=== PATIENT | male | born 1950 | race American Indian/Alaskan Native ===

== ENCOUNTER 2022-04-14 06:03 | Day surgery (SDC) | payer MEDICARE ==
[~2022-04-14 06:03] MED LIST: MIDAZOLAM 2 MG/2 ML INJ IV NR; SODIUM CHLORIDE 0.9% 1000 ML 1,000 ML IV SCH; ceFAZolin/Water 2 GM/20 ML 2 GM/20 ML SYRINGE IV SCH
[2022-04-14 06:49] LABS: Hematocrit 24.4 % (35.5-45.6); Hemoglobin 7.8 gm/dl (11.8-15.2); Mean Corpuscular HGB Conc 32 % (32-34); Mean Corpuscular Volume 84 fl (84-94); Platelet Count 131 K/mm3 (140-440); Red Blood Count 2.89 M/mm3 (3.65-5.03); Red Cell Distribution Width 14.4 % (13.2-15.2)
[2022-04-14 07:01] LABS: Calcium 8.2 mg/dL (8.4-10.2)
[2022-04-14] MEDS ORDERED: SODIUM CHLORIDE 0.9% 500 ML 500 ML ONE (07:38)
[2022-04-14] MEDS ORDERED: HEPARIN 10,000 UNITS/10 ML VIAL ONE (07:38)
[2022-04-14] MEDS ORDERED: BUPIVACAINE/PF (0.5%) 5 MG/1 ML 30 ML VIAL INFILTRATI ONE (07:38)
[2022-04-14] MEDS ORDERED: LIDOCAINE MPF (2%) 20 MG/1 ML VIAL 5 ML ONE (07:39)
[2022-04-14] MEDS ORDERED: ONDANSETRON 4 MG/2 ML INJ ONE (07:39)
[2022-04-14] MEDS ORDERED: fentaNYL 100 MCG/2 ML INJ ONE (07:39)
[2022-04-14] MEDS ORDERED: propofoL 200 MG/20 ML VIAL IV ONE ×2 (07:39→09:00)
--- NOTE | 2022-04-14 07:41 | Anesthesia Consultation ---
Anesthesia Consult and Med Hx Date of service: 04/14/22 - Airway Anesthetic Teeth Evaluation: Edentulous ROM Head & Neck: Adequate Mental/Hyoid Distance: Adequate Mallampati Class: Class III Intubation Access Assessment: Possibly Difficult - Pre-Operative Health Status ASA Pre-Surgery Classification: ASA3 Proposed Anesthetic Plan: MAC Nerve Block: supraclavicular - Pulmonary Hx Smoking: Yes (former smoker quit 30yrs ago) Hx Respiratory Symptoms: No - Cardiovascular System Hx Hypertension: Yes (took atenolol this morning) Hx Heart Attack/AMI: No - Central Nervous System CVA: No - Endocrine Hx Renal Disease: Yes (CKD V; not yet on HD) Hx Liver Disease: No Hx Insulin Dependent Diabetes: Yes Hx Thyroid Disease: No - Hematic Hx Anemia: Yes - Other Systems Hx Cancer: Yes (prostate ca) - Additional Comments Anesthesia Medical History Comments: No hx anesthetic complications.
--- NOTE | 2022-04-14 07:42 | Anesthesia Day of Surgery ---
Anesthesia Day of Surgery - Day of Surgery Patient Examined: Yes Patient H&P Reviewed: Yes Patient is NPO: Yes Beta Blockers: Yes (atenolol today AM)
--- NOTE | 2022-04-14 07:43 | Short Stay Summary ---
Short Stay Documentation Date of service: 04/14/22 Narrative H&P: The patient is a 72-year-old male with a history of stage V chronic renal sufficiency who was not yet on hemodialysis however it is anticipated that he may require hemodialysis in the near future. He is in need of creation of permanent dialysis access to avoid the placement of a permacath if he does progress to requiring hemodialysis. He is right-hand dominant and will require an access creation in his left upper extremity. I performed a bedside u ltrasound that demonstrates he is an adequate candidate for creation of a left brachiocephalic arteriovenous fistula. He was given the risk, benefits, and alternative procedures and has consented to the procedure. - History Past Medical History: anemia, diabetes, hypertension, hyperlipidemia, renal failure, other (History of gastric ulcer, history of prostate cancer) Past Surgical History: TURP, Other (Repair of bleeding ulcer, tear duct surgery) - Allergies and Medications Current Medications: Allergies No Known Allergies Allergy (Verified 04/05/22 16:58) Home Medications Medication Instructions Recorded Confirmed Last Taken Type Amlodipine Besylate/Benazepril 1 each PO DAILY 04/05/22 04/05/22 04/13/22 History [Amlodipine-Benazepril 10-20 mg] Ascorbic Acid [Vitamin C] 500 mg PO DAILY 04/05/22 04/05/22 04/13/22 History Atenolol [Tenormin] 100 mg PO DAILY 04/05/22 04/14/22 04/14/22 04:30 History Bumetanide [Bumetanide 2 mg tab] 2 mg PO DAILY 04/05/22 04/05/22 04/13/22 History Cyanocobalamin (Vitamin B-12) 5,000 mcg PO DAILY 04/05/22 04/05/22 04/13/22 History [Vitamin B12] Ergocalciferol(Vitamin D2)(Nf) 400 unit PO DAILY 04/05/22 04/05/22 04/13/22 History [Vitamin D (Nf)] Insulin Degludec [Tresiba 15 unit SQ HS 04/05/22 04/05/22 04/13/22 History Flextouch U-100] Mv-Mn/Folic Acid/Lutein/Qgt011 1 each PO DAILY 04/05/22 04/05/22 04/13/22 History [Mens Multivit High Potency Tab] [place]-3 Fatty Acids/Fish Oil [Fish 1,000 mg PO DAILY 04/05/22 04/05/22 04/13/22 History Oil] Pravastatin Sodium [Pravastatin] 10 mg PO QHS 04/05/22 04/05/22 04/13/22 History Sodium Bicarbonate 650 mg PO BID 04/05/22 04/05/22 04/13/22 History Active Medications Fentanyl (Fentanyl 100 Mcg/2 Ml Inj) 100 mcg IV ONCE PRN PRN Reason: sedation for nerve block Stop: 04/14/22 23:59 Cefazolin Sodium (Ancef/Sterile Water 2 Gm/20 Ml) 2 gm in 20 mls @ 80 mls/hr IV PREOP ARTURO; Protocol Stop: 04/14/22 23:00 Sodium Chloride (Nacl 0.9% 1000 Ml) 1,000 mls @ 42 mls/hr IV DIRECT ARTURO Stop: 04/14/22 23:59 Midazolam HCl (Midazolam 2 Mg/2 Ml Inj) 2 mg IV PREOP NR Stop: 04/14/22 23:59 - Physical exam General appearance: no acute distress Lungs: Normal air movement Breasts: deferred Heart: Regular rate Gastrointestinal: normal Male Genitourinary: deferred Rectal Exam: deferred Extremities: pulses intact (Palpable radial pulses bilaterally) - Brief post op/procedure progress note Date of procedure: 04/14/22 Pre-op diagnosis: Stage V Chronic Renal Insufficiency Post-op diagnosis: same Procedure: Creation of Left Brachiocephalic Arteriovenous Fistula Anesthesia: MAC, regional Surgeon: JESE GUZMÁN Estimated blood loss: minimal Pathology: none Condition: stable - Disposition Condition at discharge: Good Disposition: 01 HOME / SELF CARE / HOMELESS Short Stay Discharge Plan Activity: other (No heavy lifting with left arm for 2 weeks. Use the stress ball with left hand as often as possible.) Wound: open to air, keep clean and dry, other (Okay to shower and wash the wound with soap and water but do not soak in water for 2 weeks) Follow up with: JESE GUZMÁN MD [Staff Physician] - 14 Days Prescriptions: HYDROcodone/APAP 5-325 [[place] 5/325] 1 each PO Q4HR PRN #30 tablet PRN Reason: Pain
[2022-04-14] MEDS ORDERED: LIDOCAINE (1%) 10 MG/1 ML VIAL 20 ML MDV ONE (07:44)
[2022-04-14] MEDS ORDERED: BUPIVACAINE/PF (0.25%) 2.5 MG/ML 30 ML VIAL INFILTRATI ONE (07:44)
[2022-04-14] MEDS: fentaNYL 100 MCG/2 ML INJ IV PRN ×2 (07:53→07:59)
[2022-04-14] MEDS ORDERED: SODIUM CHLORIDE 0.9% IRR 1,500 ML BOTTLE IR ONE (08:30)
[2022-04-14] MEDS ORDERED: HEPARIN 10,000 UNITS/10 ML VIAL IV ONE (08:30)
[2022-04-14] MEDS ORDERED: SODIUM CHLORIDE 0.9% 500 ML IVPB IV ONE (08:31)
[2022-04-14] MEDS ORDERED: KETAMINE/STERILE WATER 50 MG/ML SYRINGE ONE (08:34)
--- NOTE | 2022-04-14 09:36 | Operative Report ---
Operative Report Operative Report: Date of procedure: 04/14/2022 Pre-operative diagnosis: End-Stage Renal Disease Post-operative diagnosis: End-Stage Renal Disease Procedure(s): Creation of Left Brachial Artery to Cephalic Vein Arteriovenous Fistula Surgeon: Arash Fontanez MD Blocking Machine Operator Second: None Anesthesia: Regional/MAC EBL: Minimal Counts: Correct Complications: None Condition: Stable Findings: Successful creation of left brachiocephalic arteriovenous fistula with palpable thrill and palpable radial pulse at the completion of the case. Specimen: None Indications: The patient is a 72-year-old male with a history of stage V chronic renal sufficiency who was not yet on hemodialysis however it is anticipated that he will progress to end-stage renal disease with the need for hemodialysis in the near future. He is in need of permanent dialysis access to avoid the placement of a permacath and was found to be a suitable candidate for creation of a left brachiocephalic arteriovenous fistula. He was given the risk, benefits, and alternative procedures and consented to the procedure. Description of Procedure: The patient had a regional block of the patient's left arm was performed in the preoperative area prior to being transported to the operating room. Once the regional block was performed the patient was transported to the operating room and adequate sedation was given. When the patient was sedated a timeout was performed and the patient's left arm was then prepped and draped in normal sterile fashion. A transverse incision was then made and carried down to the cephalic vein using sharp dissection. The vein was dissected out both proximally and distally and suture ligated and divided distally. I flushed the vein with heparinized saline and flow was controlled with a bulldog clamp. I then dissected out the brachial artery through this incision circumferentially both proximal and distal and controlled the artery with vessel loops. I systemically heparinized the patient with 3000 units of heparin IV and used angled DeBakey clamps to control flow through the artery. I created an arteriotomy using an 11 blade and Cardona scissors. I created an end to side anastomosis between the cephalic vein and brachial artery using a 6-0 Prolene in running fashion. Prior to completing the anastomosis I flashed the artery both proximally and distally and then flushed the anastomosis with heparinized saline to remove any debris. I then completed the anastomosis and removed all clamps allowing flow into the fistula which had an adequate thrill. I achieved hemostasis with a combination of Quick Clot and electrocautery. Once hemostasis had been achieved I closed the wound in 2 layers using a 3-0 Vicryl in a running fashion in the deep dermal layer and a 4-0 Monocryl in running fashion in the subcuticular layer. I then dressed the wound with Dermabond. The patient tolerated the procedure well. All sponge, needle, and instrument counts were correct. The patient was taken to the recovery area in stable condition.
[2022-04-14] MEDS ORDERED: ONDANSETRON 4 MG/2 ML INJ IV PRN (10:45)
[2022-04-14 11:31] VITALS: BP 126/62
--- NOTE | 2022-04-14 13:50 | Post Anesthesia Evaluation ---
- Post Anesthesia Evaluation Patient Participated: Yes Airway Patent: Yes Stable Respiratory Function: Yes Nausea/Vomiting: No Temp > 96.8F: Yes Pain Manageable: Yes Adequeate Hydration: Yes Anesthesia Complications: No
== END 2022-04-14 11:08 | disposition home or self-care (01) ==
LOC: OR 06:03
PROVIDERS: ATTEND Surgery Vascular Surgery
DX: I12.0 Hypertensive chronic kidney disease with stage 5 chronic kidney disease or end stage renal disease (principal); E11.22 Type 2 diabetes mellitus with diabetic chronic kidney disease; N18.6 End stage renal disease; D64.9 Anemia, unspecified; Z79.899 Other long term (current) drug therapy; Z87.891 Personal history of nicotine dependence; Z85.46 Personal history of malignant neoplasm of prostate; Z98.890 Other specified postprocedural states
CPT/HCPCS: 36415; 36821; 64415; 80048; 82962; 85027; 86850; 86900; 86901; J0690; J1644; J2250; J2405; J2704; J3010; J3490; J7030; J7040; 64450